=== PATIENT | male | born 1970 | race Caucasian/White ===

== ENCOUNTER 2018-04-09 13:30 | Emergency (ER) | payer SELFPAY ==
[~2018-04-09] VITALS: Ht 185.4 cm; Wt 75.0 kg
[2018-04-09 13:43] VITALS: Ht 185.4 cm; Wt 75.0 kg
[2018-04-09 14:51] LABS: BASOPHILS 0.4 % (0-2); EOSINOPHILS 4.4 % (0-7); HEMATOCRIT 34.4 % (42.0-54.0); HEMOGLOBIN 11.5 g/dL (13.5-17.5); IMMATURE GRANULOCYTES 0.2 % (0-5); LYMPHOCYTES 37.2 % (15-50); MCH 31.4 pg (26.0-34.0); MCHC 33.4 g/dL (31.0-37.0); MEAN PLATELET VOLUME 8.8 fL (7.4-10.4); MONOCYTES 7.1 % (2-11); NEUTROPHILS 50.7 % (40-80); PLATELET COUNT 267 10x3/uL (130-400); RBC 3.66 10x6/uL (4.20-6.10); RDW 12.5 % (11.5-14.5); WBC 4.5 10x3/uL (4.8-10.8)
[2018-04-09 15:09] LABS: ALBUMIN 3.4 g/dL (3.4-5.0); ALKALINE PHOSPHATASE 30 U/L (46-116); ALT (SGPT) 41 U/L (10-68); BILIRUBIN - TOTAL 0.19 mg/dL (0.2-1.3); CALC OSMOLALITY 282 mosm/kg (275-300); CALCIUM 8.6 mg/dL (8.5-10.1); CARBON DIOXIDE 28.5 mmol/L (21.0-32.0); CHLORIDE - SERUM 105 mmol/L (98-107); CREATININE - SERUM 1.1 mg/dL (0.6-1.3); GLUCOSE 124 mg/dL (74-106); PROTEIN - SERUM 6.4 g/dL (6.4-8.2); SODIUM 142 mmol/L (136-145); UREA NITROGEN 11 mg/dL (7-18); eGFR NON AFRICAN AMERICAN 76 mL/min (90-120)
[2018-04-09 15:25] LABS: CKMB 3.4 U/L (0.0-3.6); CREATINE KINASE 681 UL (21-232)
[2018-04-09 15:27] LABS: TROPONIN-I < 0.017 ng/mL (0.000-0.060)
[2018-04-09 16:08] VITALS: BP 128/72
== END 2018-04-09 16:09 | disposition home or self-care (01) ==
LOC: D.ER 13:30
PROVIDERS: Family Medicine
DX: M79.601 Pain in right arm (principal)